=== PATIENT | female | born 1945 | race Caucasian/White ===

== ENCOUNTER 2016-10-05 08:18 | Emergency (ER) | payer OTHER ==
[~2016-10-05] VITALS: Ht 162.6 cm; Wt 90.0 kg
[2016-10-05 08:27] VITALS: BP 150/81
== END 2016-10-05 09:55 | disposition home or self-care (01) ==
LOC: ED 08:58
DX: R53.1 Weakness (principal); R42 Dizziness and giddiness; I10 Essential (primary) hypertension
CPT/HCPCS: 99281